=== PATIENT | female | born 1965 | race Two or more races ===

== ENCOUNTER 2025-09-06 00:20 | Emergency (ER) | payer OTHER ==
[~2025-09-06] VITALS: Ht 162.6 cm; Wt 48.5 kg
[2025-09-06] MEDS ORDERED: AMLODIPINE-OLM1 EAC2 (00:54)
[2025-09-06] MEDS ORDERED: ENOXAPARIN SODIUM 40 MG/0.4 ML SYRINGE SUBCUTANEO STA (01:49)
[2025-09-06] MEDS ORDERED: ENOXAPARIN SODIUM 40 MG/0.4 ML SYRINGE SUBCUTANEO ONE (01:57)
[2025-09-06 02:42] LABS: BASO % 0.4 % (0.1-1.2); EOS # 0.04 (0.04-0.54); EOS % 1.7 % (0.7-7.0); LYMPH # 0.78 (1.18-3.74); LYMPH % 32.2 % (19.3-53.1); MEAN PLATELET VOLUME 8.90 fl (9.4-12.4); MONO # 0.13 (0.24-0.82); MONO % 5.4 % (4.7-12.5); NEUT # 1.45 (1.56-6.13); NEUT % 59.9 % (34.0-71.1); RED CELL DISTRIBUTION WIDTH 17.4 % (11.6-14.4)
[2025-09-06 02:49] LABS: INR 1.02
[2025-09-06 02:50] LABS: BUN CREA RATIO 35.0 (7.0-25.0); CREATININE SERUM 0.6 mg/dL (0.55-1.02); GFR 102.68; GLUCOSE FASTING 100.0 mg/dL (65-100); OSMOLALITY SERUM 286.0 MOSM/KG (275-295)
== END 2025-09-06 05:24 | disposition home or self-care (01) ==
LOC: ER 00:20
PROVIDERS: General Practice
DX: I82.409 Acute embolism and thrombosis of unspecified deep veins of unspecified lower extremity (principal); I10 Essential (primary) hypertension; Z88.8 Allergy status to other drugs, medicaments and biological substances; Z85.038 Personal history of other malignant neoplasm of large intestine